=== PATIENT | female | born 1965 | race Caucasian/White ===

== ENCOUNTER 2019-05-21 19:47 | Emergency (ER) | payer OTHER ==
[~2019-05-21] VITALS: Ht 175.3 cm; Wt 80.3 kg
[2019-05-21] MEDS ORDERED: PROAIR RESPICL90 MCG (19:58)
[2019-05-21] MEDS ORDERED: SINGULAIR10 MG (19:59)
== END 2019-05-21 21:45 | disposition home or self-care (01) ==
LOC: ER 19:47
DX: S00.83XA Contusion of other part of head, initial encounter (principal); S80.01XA Contusion of right knee, initial encounter; S80.02XA Contusion of left knee, initial encounter; W06.XXXA Fall from bed, initial encounter; Y93.89 Activity, other specified; Y92.092 Bedroom in other non-institutional residence as the place of occurrence of the external cause; Y99.8 Other external cause status